=== PATIENT | female | born 1955 | race Caucasian/White ===

== ENCOUNTER 2017-05-04 07:11 | Inpatient (IN) | payer BC ==
[~2017-05-04] VITALS: Ht 151.1 cm; Wt 76.7 kg
[~2017-05-04 07:11] MED LIST: ALLEGRA PO; ASPIRIN81 MG PO; AZITHROMYCIN250 MG PO; KEFLEX500 MG; MULTI-VITAMIN1 EACH PO; PANTOPRAZOLE SO40 MG PO; PREVACID15 MG PO; ROLAIDS PO; VICODIN 5-5001 EACH PO; WELLBUTRIN SR150 MG PO; ZYRTEC10 MG PO
--- OUTSIDE RECORDS SUMMARY | 2017-05-04 07:15 | XMS REPORT ---
Author Author [facility] Address Unknown Phone Unavailable Care Team Providers Care Housing Relocation Name Role Phone NATHALIA RICCI Unavailable Unavailable Problems This patient has no known problems. Allergies, Adverse Reactions, Alerts This patient has no known allergies or adverse reactions. Medications This patient has no known medications. Results Test Description Test Time Test Comments Text Results Atomic Results Result Comments CHEST SINGLE (PORTABLE) [place] [address] Patient Name: ANA LAURA EDDY MR #: [id number] : 1955 Age/Sex: 61/F Req #: [id number] [facility] Physician: Ordered by: NATHALIA RICCI MD Report #: [id number] Location: ER Room/Bed: Procedure: [id number] DX/CHEST SINGLE (PORTABLE) Exam Date: 02/23/17 Exam Time: 1025 REPORT STATUS: Signed PROCEDURE: A single AP view of the chest. COMPARISON: Portable chest 08/03/2016. INDICATIONS: CHEST PRESSURE, PNEUMONIA FINDINGS: Lines/tubes: None. Lungs: The lungs are well inflated and clear. There is no evidence of pneumonia or pulmonary edema. Pleura: There is no pleural effusion or pneumothorax. Heart and mediastinum: The heart and the mediastinum are unremarkable. Bones: No acute bony abnormality. Degenerative changes of the thoracic spine. IMPRESSION: No acute radiographic abnormality. Dictated by: Florecita eBck M.D. on 02/23/2017 at 11:19 Electronically approved by: Florecita Beck M.D. on 02/23/2017 at 11:19 Dictated By: FLORECITA BECK MD 111 Transcribed By: DUKE on 02/23/171118 COPY TO: NATHALIA RICCI MD
[2017-05-04] MEDS ORDERED: ONDANSETRON HCL INJ 2 MG/ML VIAL IV STA ×2 (07:17→07:49)
[2017-05-04] MEDS ORDERED: ASPIRIN EC81 MG PO (07:38)
[2017-05-04] MEDS ORDERED: TRAZODONE HCL50 MG PO (07:38)
[2017-05-04] MEDS ORDERED: ALBUTEROL0.63 MG/3 INH (07:38)
[2017-05-04] MEDS ORDERED: BIOTIN1 MG PO (07:38)
[2017-05-04] MEDS ORDERED: ATORVASTATIN CA20 MG PO (07:38)
[2017-05-04] MEDS ORDERED: SYMBICORT 16010.2 GM (07:38)
--- NOTE | 2017-05-04 07:38 | Diagnostic Imaging Report ---
PROCEDURE: A single AP view of the chest. COMPARISON: None. INDICATIONS: COUGH, SOB, CHILLS FINDINGS: Lines/tubes: None. Lungs: Right perihilar and right lung base airspace opacification. The left lung is clear. Pleura: There is no pleural effusion or pneumothorax. Heart and mediastinum: The heart and the mediastinum are unremarkable. Bones: No acute bony abnormality. Degenerative changes of the thoracic spine. IMPRESSION: Airspace opacification in the right lung may represent a developing pneumonia. Dictated by: Grant Lomas M.D. on 05/04/2017 at 7:48 Electronically approved by: Grant Lomas M.D. on 05/04/2017 at 7:48
[2017-05-04 07:49] LABS: BASOPHILS # (AUTO) 0.1 (0.0-0.1); BASOPHILS % 0.3 % (0.0-1.0); EOSINOPHILS # (AUTO) 0.1 (0.0-0.4); EOSINOPHILS % 0.5 % (0.0-6.0); HEMATOCRIT 41.7 % (34.2-44.1); LYMPHOCYTES # (AUTO) 2.7 (1.0-3.2); LYMPHOCYTES % 16.1 % (18.0-39.1); MEAN CORPUSCULAR HEMOGLOBIN 27.4 pg (28-32); MEAN CORPUSCULAR HGB CONC 31.2 g/dL (31-35); MONOCYTES # (AUTO) 0.6 (0.2-0.8); MONOCYTES % 3.6 % (4.4-11.3); NEUTROPHILS # (AUTO) 13.4 (2.1-6.9); NEUTROPHILS % 79.2 % (38.7-80.0); PLATELET COUNT 320 x10e3/uL (140-360); RED BLOOD COUNT 4.74 x10e6/uL (3.6-5.1); RED CELL DISTRIBUTION WIDTH 14.9 % (11.7-14.4)
[2017-05-04 08:00] VITALS: BP 105/62
[2017-05-04] MEDS ORDERED: MORPHINE SULFATE 5 MG/ML VIAL IV ONE (08:00)
[2017-05-04] MEDS ORDERED: MORPHINE SULFATE 2 MG/ML SYR IV NR (08:00)
[2017-05-04] MEDS ORDERED: SODIUM CHLORIDE 0.9% 1000ML 1,000 ML IV SCH (08:00)
[2017-05-04] MEDS: SODIUM CHLORIDE 0.9% 1000ML 1,000 ML IV SCH ×2 (08:02→17:10)
[2017-05-04] MEDS: CEFTRIAXONE SOD 1 GM VIAL IV SCH (08:04)
[2017-05-04 08:06] LABS: ALANINE AMINOTRANSFERASE 17 IU/L (0-55); ALBUMIN 3.5 g/dL (3.5-5.0); ALKALINE PHOSPHATASE 78 IU/L (40-150); ANION GAP 14.7 mmol/L (8-16); BLOOD UREA NITROGEN 12 mg/dL (7-26); BUN/CREATININE RATIO 14 (6-25); CALCIUM 9.2 mg/dL (8.4-10.2); CARBON DIOXIDE 26 mmol/L (22-29); CHLORIDE 108 mmol/L (98-107); CREATINE KINASE 93 IU/L (29-168); CREATININE, SERUM 0.85 mg/dL (0.57-1.11); EST GLOMERULAR FILTRATION RATE > 60 ML/MIN (60-); GLUCOSE 103 mg/dL (74-118); POTASSIUM 3.7 mmol/L (3.5-5.1); SODIUM 145 mmol/L (136-145)
[2017-05-04] MEDS ORDERED: AZITHROMYCIN 500MG/SOD CHL 0.9% 250ML BAG IV SCH (08:15)
[2017-05-04] MEDS ORDERED: MORPHINE SULFATE 4 MG/ML SYR IV PRN (08:15)
[2017-05-04] MEDS ORDERED: ONDANSETRON HCL INJ 2 MG/ML VIAL IV PRN (08:15)
[2017-05-04] MEDS ORDERED: MORPHINE SULFATE 2 MG/ML SYR IV PRN (08:30)
[2017-05-04] MEDS: AZITHROMYCIN 500MG/NS 250 ML 250 ML IV SCH (08:57)
[2017-05-04] MEDS: IPRATROPIUM BROMIDE 0.02% 2.5 ML NEB NEB SCH ×3 (09:00→19:45)
[2017-05-04 09:12] VITALS: BP 105/68
[2017-05-04 12:17] VITALS: BP 99/46
[2017-05-04] MEDS: ALBUTEROL SULF 0.083% NEB SOLN 3 ML NEB NEB SCH ×3 (13:00→19:45)
--- OUTSIDE RECORDS SUMMARY | 2017-05-04 13:04 | XMS REPORT | Continuity of Care Document ---
Author Author [facility] Organization [facility] Address [address] [place] [address] Phone Unavailable Care Team Providers Care Tag Press Operator Name Role Phone CINDY BRICENO DO PCP Insurance Providers Guarantor Ana Laura Lopez Address [address] [place] [address] Payer [facility] Policy Number [id number] Subscriber's Name Ana Laura Lopez Relationship 18 Self / Same As Patient Group Number [id number] Group Name [employer]. Effective Date 14 Advance Directives Directive Response Recorded Date/Time Does the patient have an advance directive? No 12/28/14 5:57pm If yes, is advance directive on file with [facility]? No 04/03/12 2:24pm If not on file with [facility] will patient provide a copy? Yes 08/02/16 3:02pm Do you have a Directive to Physician? No 05/04/17 7:59am Do you have a Medical Power of Correspondence Review Clerk? No 05/04/17 7:59am Do you have an out of hospital Do Not Resuscitate Order? No 05/04/17 7:59am Do you have any special needs we should be aware of? No 05/04/17 7:59am Do you have a support person here with you today? Yes 05/04/17 7:59am Did patient receive Notice of Privacy Practices? Yes 05/04/17 7:59am Did patient receive patient rights and responsibilities? Yes 05/04/17 7:59am Problems Medical Problem Onset Date Status Hypoxia Unknown Pneumonia 12/28/2014 Acute UTI (urinary tract infection) 12/28/2014 Acute Medications Current Home Medications Medication Dose Units Route Directions Days Qty Instructions Start Date Albuterol Sulfate 0.63 Mg/3 Ml Vial.neb 3 Ml Inhalation Aspirin (Aspirin Ec) 81 Mg Tablet.dr 81 Mg Oral Daily 30 Tab Atorvastatin Calcium 20 Mg Tablet 40 Mg Oral Bedtime 30 Tab Biotin 1 Mg Tablet 1 Mg Oral Budesonide/Formoterol Fumarate (Symbicort 160-4.5 Mcg Inhaler) 10.2 Gm Hfa.aer.ad Bupropion Hcl (Wellbutrin Sr) 150 Mg Tablet.er 150 Mg Oral Daily Pantoprazole Sodium (Protonix) 40 Mg Tablet. 40 Mg Oral Daily Trazodone Hcl 50 Mg Tablet 50 Mg Oral Daily 30 Tab Past Home Medications Medication Directions Ordered Status Lin , Oral Daily Discontinued Aspirin 81 Mg Tab.chew, 81 Mg Oral Daily Discontinued Azithromycin (Z-Juice) 250 Mg Tablet, 250 Mg Oral Use As Directed Discontinued Cephalexin Monohydrate (Keflex) 500 Mg Capsule, Discontinued Cetirizine Hcl (Zyrtec) 10 Mg Tablet, 1 Tab Oral Daily Discontinued Hydrocodone Bit/Acetaminophen* (Vicodin 5-500 Tablet*) 1 Each Tablet, Oral As Needed as needed Discontinued Lansoprazole (Prevacid*) 15 Mg Capcr, 15 Mg Oral Daily Discontinued Multivitamin (Multi-Vitamin Daily) 1 Each Tablet, Oral Daily Discontinued Rolaids , 2 Tab.chew Oral As Needed Discontinued Social History Social History Problem Response Recorded Date/Time Onset Date Status Hx Psychiatric Problems No 08/03/2016 3:19am Not Applicable Not Applicable Hx Eating Disorder No 08/03/2016 3:19am Not Applicable Not Applicable Hx Substance Use Disorder No 08/03/2016 3:19am Not Applicable Not Applicable Hx Depression No 08/03/2016 3:19am Not Applicable Not Applicable Hx Alcohol Use No 08/03/2016 3:19am Not Applicable Not Applicable Hx Substance Use Treatment No 08/03/2016 3:19am Not Applicable Not Applicable Hx Physical Abuse No 08/03/2016 3:19am Not Applicable Not Applicable Smoking Status Start Date Stop Date Never Smoker Hospital Discharge Instructions No hospital discharge instruction information available. Plan of Care Discharge Date 05/04/17 1:00pm Disposition ADMITTED Prescriptions See Medication Section Functional Status No functional status information available. Allergies, Adverse Reactions, Alerts Allergen Type Severity Reaction Status Last Updated TAPE Allergy Mild skin irritation Active 08/02/16 Immunizations No immunization information available. Vital Signs Acute Vital Signs Vital Response Date/Time Temperature (Fahrenheit) 99.2 degrees F (97.6 - 99.5) 05/04/2017 12:17pm Pulse Pulse Rate (adult) 92 bpm (60 - 90) 05/04/2017 12:17pm Respiratory Rate 20 bpm (12 - 24) 05/04/2017 12:17pm Blood Pressure 99/46 mm Hg 05/04/2017 12:17pm Height 4 ft 11.5 in 05/04/2017 7:11am Weight 167 lb 05/04/2017 7:11am Body Mass Index 33.2 kg/m^2 05/04/2017 7:11am Results Laboratory Results Test Name Result Units Flags Reference Collection Date/Time Result Date/ Time Comments Urine Mucus FEW H RARE 08/02/2016 2:09pm 08/02/2016 4:44pm Lactic Acid Level 9.4 MG/DL 4.5-19.8 08/02/2016 1:20pm 08/02/2016 2: 07pm Magnesium Level 1.8 MG/DL 1.3-2.1 08/02/2016 1:20pm 08/02/2016 2:09pm B-Type Natriuretic Peptide 85.3 pg/mL 0-100 08/02/2016 1:20pm 2016 2:27pm Lipase 5 U/L L 8-78 08/02/2016 1:20pm 08/02/2016 2:09pm Arterial Blood pH 7.43 H 7.31-7.41 08/02/2016 2:01pm 08/02/2016 2: 12pm Arterial Blood Partial Pressure CO2 37 mmHg L 41-51 08/02/2016 2:01pm 2:12pm Arterial Blood Partial Pressure O2 60 mmHg L 80-105 08/02/2016 2:01pm 2:12pm Arterial Blood HCO3 24 mmol/L 23-28 08/02/2016 2:01pm 08/02/2016 2: 12pm Arterial Blood Base Excess 0.0 mmol/L -2 - 3 08/02/2016 2:01pm 2016 2:12pm Arterial Blood Oxygen Saturation 92.0 % L 95-98 08/02/2016 2:01pm 2016 2:12pm Group A Streptococcus Screen NEGATIVE NEGATIVE 08/02/2016 3:49pm 11/2016 5:25pm Prothrombin Time 11.8 seconds L 11.9-14.5 02/23/2017 9:45am 02/23/2017 10:39am Prothromb Time International Ratio 0.83 02/23/2017 9:45am 2016 10:39am Oral Anticoagulant Therapy INR Values: 1. Low Intensity Therapy 1.5 - 2.0 2. Moderate Intensity Therapy 2.0 - 3.0 3. High Intensity Therapy(1) 2.5 - 3.5 4. High Intensity Therapy(2) 3.0 - 4.0 5. Panic Value INR > 5.0 Activated Partial Thromboplast Time 26.4 seconds 23.8-35.5 02/23/2017 9: 45am 02/23/2017 10:39am Urine Color YELLOW YELLOW 02/23/2017 10:00am 02/23/2017 10:41am Urine Clarity SL CLOUDY CLEAR 02/23/2017 10:00am 02/23/2017 10:41am Urine Specific [place] 1.015 1.010-1.025 02/23/2017 10:00am 2016 10:41am Urine pH 6.5 5 - 7 02/23/2017 10:00am 02/23/2017 10:41am Urine Leukocyte Esterase NEGATIVE NEGATIVE 02/23/2017 10:00am 2016 10:41am Urine Nitrite NEGATIVE NEGATIVE 02/23/2017 10:00am 02/23/2017 10: 41am Urine Protein NEGATIVE NEGATIVE 02/23/2017 10:00am 02/23/2017 10: 41am Urine Glucose (UA) NEGATIVE NEGATIVE 02/23/2017 10:00am 02/23/2017 10 :41am Urine Ketones NEGATIVE NEGATIVE 02/23/2017 10:00am 02/23/2017 10: 41am Urine Urobilinogen 0.2 mg/dL 0.2 - 1 02/23/2017 10:00am 02/23/2017 10: 41am Urine Bilirubin NEGATIVE NEGATIVE 02/23/2017 10:00am 02/23/2017 10: 41am Urine Blood NEGATIVE NEGATIVE 02/23/2017 10:00am 02/23/2017 10:41am Urine WBC NONE /HPF 0-5 02/23/2017 10:00am 02/23/2017 10:42am Urine RBC NONE /HPF 0-5 02/23/2017 10:00am 02/23/2017 10:42am Urine Bacteria NONE /HPF NONE 02/23/2017 10:00am 02/23/2017 10:42am Urine Epithelial Cells FEW /LPF NONE 02/23/2017 10:00am 02/23/2017 10: 42am White Blood Count 16.86 x10e3/uL H 4.8-10.8 05/04/2017 7:252017 7:52am Red Blood Count 4.74 x10e6/uL 3.6-5.1 05/04/2017 7:05/04/2017 7: 52am Hemoglobin 13.0 g/dL 12.0-16.0 05/04/2017 7:05/04/2017 7:52am Hematocrit 41.7 % 34.2-44.1 05/04/2017 7:05/04/2017 7:52am Mean Corpuscular Volume 88.0 fL 81-99 05/04/2017 7:05/04/2017 7: 52am Mean Corpuscular Hemoglobin 27.4 pg L 28-32 05/04/2017 7:2017 7:52am Mean Corpuscular Hemoglobin Concent 31.2 g/dL 31-35 05/04/2017 7:05/04/2017 7:52am Red Cell Distribution Width 14.9 % H 11.7-14.4 05/04/2017 7:2017 7:52am Platelet Count 320 x10e3/uL 140-360 05/04/2017 7:05/04/2017 7: 52am Neutrophils (%) (Auto) 79.2 % 38.7-80.0 05/04/2017 7:05/04/2017 7: 52am Lymphocytes (%) (Auto) 16.1 % L 18.0-39.1 05/04/2017 7:05/04/2017 7 :52am Monocytes (%) (Auto) 3.6 % L 4.4-11.3 05/04/2017 7:05/04/2017 7: 52am Eosinophils (%) (Auto) 0.5 % 0.0-6.0 05/04/2017 7:05/04/2017 7: 52am Basophils (%) (Auto) 0.3 % 0.0-1.0 05/04/2017 7:05/04/2017 7:52am IM GRANULOCYTES % 0.3 % 0.0-1.0 05/04/2017 7:05/04/2017 7:52am Neutrophils # (Auto) 13.4 H 2.1-6.9 05/04/2017 7:05/04/2017 7: 52am Lymphocytes # (Auto) 2.7 1.0-3.2 05/04/2017 7:05/04/2017 7:52am Monocytes # (Auto) 0.6 0.2-0.8 05/04/2017 7:05/04/2017 7:52am Eosinophils # (Auto) 0.1 0.0-0.4 05/04/2017 7:05/04/2017 7:52am Basophils # (Auto) 0.1 0.0-0.1 05/04/2017 7:05/04/2017 7:52am Absolute Immature Granulocyte (auto 0.05 x10e3/uL 0-0.1 05/04/2017 7: 05/04/2017 7:52am Sodium Level 145 mmol/L 136-145 05/04/2017 7:05/04/2017 8:08am Potassium Level 3.7 mmol/L 3.5-5.1 05/04/2017 7:05/04/2017 8:08am Chloride Level 108 mmol/L H 98-107 05/04/2017 7:05/04/2017 8:08am Influenza Virus Types A,B Antigen NEGATIVE NEGATIVE 05/04/2017 7:2005/04/2017 8:08am Carbon Dioxide Level 26 mmol/L 22-29 05/04/2017 7:05/04/2017 8: 08am Anion Gap 14.7 mmol/L 8-16 05/04/2017 7:05/04/2017 8:08am Blood Urea Nitrogen 12 mg/dL 7-05/04/2017 7:05/04/2017 8:08am Creatinine 0.85 mg/dL 0.57-1.11 05/04/2017 7:05/04/2017 8:08am BUN/Creatinine Ratio 14 6-05/04/2017 7:05/04/2017 8:08am Estimat Glomerular Filtration Rate > 60 ML/MIN 60- 05/04/2017 7: 8:08am Ranges were taken from the National Kidney Disease Education Program and the National Kidney Foundation literature. Reference ranges: 60 or greater: Normal 16-59 (for 3 consecutive months): Chronic kidney disease 15 or less: Kidney failure Glucose Level 103 mg/dL 74-118 05/04/2017 7:05/04/2017 8:08am Calcium Level 9.2 mg/dL 8.4-10.2 05/04/2017 7:05/04/2017 8:08am Total Bilirubin 0.5 mg/dL 0.2-1.2 05/04/2017 7:05/04/2017 8:08am Aspartate Amino Transf (AST/SGOT) 17 IU/L 5-34 05/04/2017 7:2017 8:08am Alanine Aminotransferase (ALT/SGPT) 17 IU/L 0-55 05/04/2017 7:10/2017 8:08am Total Protein 7.1 g/dL 6.5-8.1 05/04/2017 7:05/04/2017 8:08am Albumin 3.5 g/dL 3.5-5.0 05/04/2017 7:05/04/2017 8:08am Globulin 3.6 g/dL H 2.3-3.5 05/04/2017 7:05/04/2017 8:08am Albumin/Globulin Ratio 1.0 0.8-2.0 05/04/2017 7:05/04/2017 8: 08am Alkaline Phosphatase 78 IU/L 40-150 05/04/2017 7:25am 05/04/2017 8: 08am Creatine Kinase 93 IU/L 29-168 05/04/2017 7:25am 05/04/2017 8:08am Creatine Kinase MB 2.90 ng/mL 0.00-5.00 05/04/2017 7:25am 05/04/2017 8: 25am Troponin I 0.003 ng/mL 0-0.300 05/04/2017 7:25am 05/04/2017 8:25am Microbiology Results Procedure Source Organism/Result Collection Date/Time Result Date/Time Result Status Blood Culture Blood NO GROWTH AFTER 5 DAYS, FINAL REPORT 08/02/2016 1:20pm 08/07/2016 2:21pm Final Procedures Procedure Status Date Provider(s) X-ray of chest, two views Active 08/02/16 KARELY ROWELL NP Computed tomography of brain without then with contrast Active 08/04/16 CAYETANO TREVINO MD X-ray of chest, single view Active 05/04/17 YESSI CHOE MD Encounters Encounter Location Arrival/Admit Date Discharge/Depart Date Attending Provider Departed [facility] 05/04/17 7:11am 1:00pm YESSI CHOE MD Departed [facility] 02/23/17 9:34am 1:13pm NATHALIA RICCI MD Discharged [facility]patient [facility] 08/02/16 7:43pm 08/05/16 12:14pm CAYETANO TREVINO MD
[2017-05-04 13:45] VITALS: BP 120/55
[2017-05-04 16:27] VITALS: BP 91/54
[2017-05-04] MEDS: ACETAMINOPHEN 325 MG TAB PO PRN (17:28)
[2017-05-04] MEDS: ENOXAPARIN SOD INJ 40 MG/0.4 ML SYR SC SCH (17:29)
[2017-05-04] MEDS ORDERED: ALBUTEROL SULF 0.083% NEB SOLN 3 ML NEB INH PRN (17:45)
[2017-05-04] MEDS: BUDESONIDE/FORMOTEROL 160/4.5MCG INHALER INH SCH (19:00)
[2017-05-04 20:00] VITALS: BP 97/58
[2017-05-04] MEDS: ATORVASTATIN 40 MG TAB PO SCH (20:52)
[2017-05-05] VITALS (8 sets, daily range): BP systolic 82–106; BP diastolic 51–69
[2017-05-05] MEDS: ALBUTEROL SULF 0.083% NEB SOLN 3 ML NEB NEB SCH ×4 (01:35→18:30)
[2017-05-05] MEDS: IPRATROPIUM BROMIDE 0.02% 2.5 ML NEB NEB SCH ×4 (01:35→18:30)
[2017-05-05] MEDS: SODIUM CHLORIDE 0.9% 1000ML 1,000 ML IV SCH ×4 (01:40→23:00)
[2017-05-05] MEDS: ASPIRIN 81 MG ENTERIC COATED PO SCH (08:02)
[2017-05-05] MEDS: BUPROPION HCL SR 150 MG TAB PO SCH (08:02)
[2017-05-05] MEDS: TRAZODONE HCL 50 MG TAB PO SCH (08:02)
[2017-05-05] MEDS: PANTOPRAZOLE SOD 40 MG TABEC PO SCH (08:02)
[2017-05-05] MEDS: CEFTRIAXONE SOD 1 GM VIAL IV SCH (08:02)
[2017-05-05] MEDS: ACETAMINOPHEN 325 MG TAB PO PRN (08:03)
[2017-05-05] MEDS: AZITHROMYCIN 500MG/NS 250 ML 250 ML IV SCH (08:11)
[2017-05-05] MEDS: ENOXAPARIN SOD INJ 40 MG/0.4 ML SYR SC SCH (16:04)
[2017-05-05] MEDS: BUDESONIDE/FORMOTEROL 160/4.5MCG INHALER INH SCH (18:30)
[2017-05-05] MEDS: ATORVASTATIN 40 MG TAB PO SCH (20:29)
[2017-05-06] VITALS (7 sets, daily range): BP systolic 92–117; BP diastolic 56–81
[2017-05-06] MEDS: IPRATROPIUM BROMIDE 0.02% 2.5 ML NEB NEB SCH ×4 (00:35→19:00)
[2017-05-06] MEDS: ALBUTEROL SULF 0.083% NEB SOLN 3 ML NEB NEB SCH ×4 (00:35→19:00)
[2017-05-06] MEDS: SODIUM CHLORIDE 0.9% 1000ML 1,000 ML IV SCH ×3 (06:15→22:50)
[2017-05-06] MEDS: BUDESONIDE/FORMOTEROL 160/4.5MCG INHALER INH SCH ×2 (07:00→19:00)
--- NOTE | 2017-05-06 07:25 | Diagnostic Imaging Report ---
EXAMINATION: PA and lateral views of the chest. COMPARISON: August 02, 2016 CLINICAL HISTORY: Pneumonia, hypoxia DISCUSSION: Lines/tubes: None. Lungs: Right lower lobe medial opacity better seen on the lateral radiograph. Central pulmonary venous congestion. Pleura: There is no pleural effusion or pneumothorax. Heart and mediastinum: The cardiomediastinal silhouette is normal. Bones and soft tissues: No acute bony abnormalities. IMPRESSION: Right medial lower lobe consolidation may reflect pneumonia. Signed by: Dr. Benedict Suazo M.D. on 05/06/2017 7:22 AM
[2017-05-06 07:54] LABS: BASOPHILS % 0.3 % (0.0-1.0); EOSINOPHILS # (AUTO) 0.1 (0.0-0.4); EOSINOPHILS % 1.7 % (0.0-6.0); HEMATOCRIT 32.1 % (34.2-44.1); HEMOGLOBIN 9.8 g/dL (12.0-16.0); LYMPHOCYTES # (AUTO) 2.3 (1.0-3.2); LYMPHOCYTES % 34.8 % (18.0-39.1); MEAN CORPUSCULAR HEMOGLOBIN 27.5 pg (28-32); MEAN CORPUSCULAR HGB CONC 30.5 g/dL (31-35); MEAN CORPUSCULAR VOLUME 89.9 fL (81-99); MONOCYTES # (AUTO) 0.5 (0.2-0.8); MONOCYTES % 7.2 % (4.4-11.3); NEUTROPHILS # (AUTO) 3.7 (2.1-6.9); NEUTROPHILS % 55.5 % (38.7-80.0); PLATELET COUNT 222 x10e3/uL (140-360); RED BLOOD COUNT 3.57 x10e6/uL (3.6-5.1); RED CELL DISTRIBUTION WIDTH 15.7 % (11.7-14.4)
[2017-05-06 08:14] LABS: ANION GAP 9.2 mmol/L (8-16); BLOOD UREA NITROGEN 6 mg/dL (7-26); BUN/CREATININE RATIO 8 (6-25); CALCIUM 8.1 mg/dL (8.4-10.2); CARBON DIOXIDE 25 mmol/L (22-29); CHLORIDE 114 mmol/L (98-107); CREATININE, SERUM 0.77 mg/dL (0.57-1.11); EST GLOMERULAR FILTRATION RATE > 60 ML/MIN (60-); GLUCOSE 92 mg/dL (74-118); POTASSIUM 3.2 mmol/L (3.5-5.1); SODIUM 145 mmol/L (136-145)
[2017-05-06] MEDS: CEFTRIAXONE SOD 1 GM VIAL IV SCH (08:34)
[2017-05-06] MEDS: AZITHROMYCIN 500MG/NS 250 ML 250 ML IV SCH (08:34)
[2017-05-06] MEDS: ASPIRIN 81 MG ENTERIC COATED PO SCH (08:34)
[2017-05-06] MEDS: BUPROPION HCL SR 150 MG TAB PO SCH (08:34)
[2017-05-06] MEDS: PANTOPRAZOLE SOD 40 MG TABEC PO SCH (08:34)
[2017-05-06] MEDS: TRAZODONE HCL 50 MG TAB PO SCH (08:34)
[2017-05-06] MEDS ORDERED: POTASSIUM CHLORIDE 10 MEQ TABCR PO ONE (13:30)
[2017-05-06] MEDS: ENOXAPARIN SOD INJ 40 MG/0.4 ML SYR SC SCH (16:06)
[2017-05-06] MEDS: ATORVASTATIN 40 MG TAB PO SCH (20:12)
[2017-05-06] MEDS: ACETAMINOPHEN 325 MG TAB PO PRN (20:12)
[2017-05-07] VITALS (9 sets, daily range): BP systolic 94–121; BP diastolic 61–76
[2017-05-07] MEDS: BUDESONIDE/FORMOTEROL 160/4.5MCG INHALER INH SCH ×2 (06:55→19:45)
[2017-05-07] MEDS: IPRATROPIUM BROMIDE 0.02% 2.5 ML NEB NEB SCH ×3 (06:58→19:45)
[2017-05-07] MEDS: ALBUTEROL SULF 0.083% NEB SOLN 3 ML NEB NEB SCH ×3 (06:58→19:45)
[2017-05-07] MEDS: PANTOPRAZOLE SOD 40 MG TABEC PO SCH (08:13)
[2017-05-07] MEDS: BUPROPION HCL SR 150 MG TAB PO SCH (08:13)
[2017-05-07] MEDS: CEFTRIAXONE SOD 1 GM VIAL IV SCH (08:13)
[2017-05-07] MEDS: TRAZODONE HCL 50 MG TAB PO SCH (08:13)
[2017-05-07] MEDS: ASPIRIN 81 MG ENTERIC COATED PO SCH (08:13)
[2017-05-07] MEDS: AZITHROMYCIN 500MG/NS 250 ML 250 ML IV SCH (08:13)
[2017-05-07] MEDS: ACETAMINOPHEN 325 MG TAB PO PRN ×2 (09:01→19:28)
[2017-05-07 11:36] LABS: BASOPHILS % 0.4 % (0.0-1.0); EOSINOPHILS # (AUTO) 0.1 (0.0-0.4); EOSINOPHILS % 1.3 % (0.0-6.0); HEMATOCRIT 32.8 % (34.2-44.1); HEMOGLOBIN 10.3 g/dL (12.0-16.0); LYMPHOCYTES # (AUTO) 2.3 (1.0-3.2); LYMPHOCYTES % 20.7 % (18.0-39.1); MEAN CORPUSCULAR HEMOGLOBIN 27.5 pg (28-32); MEAN CORPUSCULAR HGB CONC 31.4 g/dL (31-35); MEAN CORPUSCULAR VOLUME 87.5 fL (81-99); MONOCYTES # (AUTO) 0.6 (0.2-0.8); MONOCYTES % 5.2 % (4.4-11.3); NEUTROPHILS % 72.1 % (38.7-80.0); PLATELET COUNT 234 x10e3/uL (140-360); RED BLOOD COUNT 3.75 x10e6/uL (3.6-5.1); RED CELL DISTRIBUTION WIDTH 15.4 % (11.7-14.4)
[2017-05-07 12:00] LABS: ANION GAP 8.6 mmol/L (8-16); BLOOD UREA NITROGEN 5 mg/dL (7-26); BUN/CREATININE RATIO 8 (6-25); CALCIUM 8.5 mg/dL (8.4-10.2); CARBON DIOXIDE 24 mmol/L (22-29); CHLORIDE 112 mmol/L (98-107); CREATININE, SERUM 0.65 mg/dL (0.57-1.11); EST GLOMERULAR FILTRATION RATE > 60 ML/MIN (60-); GLUCOSE 97 mg/dL (74-118); POTASSIUM 3.6 mmol/L (3.5-5.1); SODIUM 141 mmol/L (136-145)
[2017-05-07] MEDS: ENOXAPARIN SOD INJ 40 MG/0.4 ML SYR SC SCH (16:19)
[2017-05-07] MEDS: ATORVASTATIN 40 MG TAB PO SCH (20:25)
[2017-05-08] VITALS (7 sets, daily range): BP systolic 97–137; BP diastolic 55–71
[2017-05-08] MEDS: IPRATROPIUM BROMIDE 0.02% 2.5 ML NEB NEB SCH ×4 (00:45→19:30)
[2017-05-08] MEDS: ALBUTEROL SULF 0.083% NEB SOLN 3 ML NEB NEB SCH ×4 (00:45→19:30)
[2017-05-08] MEDS: ACETAMINOPHEN 325 MG TAB PO PRN ×2 (06:37→22:13)
[2017-05-08] MEDS: BUDESONIDE/FORMOTEROL 160/4.5MCG INHALER INH SCH ×2 (07:00→19:30)
[2017-05-08 07:08] LABS: BASOPHILS % 0.3 % (0.0-1.0); EOSINOPHILS # (AUTO) 0.2 (0.0-0.4); EOSINOPHILS % 3.5 % (0.0-6.0); HEMATOCRIT 34.1 % (34.2-44.1); HEMOGLOBIN 10.5 g/dL (12.0-16.0); LYMPHOCYTES # (AUTO) 2.3 (1.0-3.2); LYMPHOCYTES % 39.3 % (18.0-39.1); MEAN CORPUSCULAR HEMOGLOBIN 26.8 pg (28-32); MEAN CORPUSCULAR HGB CONC 30.8 g/dL (31-35); MONOCYTES # (AUTO) 0.4 (0.2-0.8); MONOCYTES % 7.7 % (4.4-11.3); NEUTROPHILS # (AUTO) 2.8 (2.1-6.9); PLATELET COUNT 239 x10e3/uL (140-360); RED BLOOD COUNT 3.92 x10e6/uL (3.6-5.1); RED CELL DISTRIBUTION WIDTH 15.6 % (11.7-14.4)
[2017-05-08 07:33] LABS: ANION GAP 9.9 mmol/L (8-16); BLOOD UREA NITROGEN 6 mg/dL (7-26); BUN/CREATININE RATIO 8 (6-25); CALCIUM 8.9 mg/dL (8.4-10.2); CARBON DIOXIDE 27 mmol/L (22-29); CHLORIDE 109 mmol/L (98-107); CREATININE, SERUM 0.72 mg/dL (0.57-1.11); EST GLOMERULAR FILTRATION RATE > 60 ML/MIN (60-); GLUCOSE 96 mg/dL (74-118); POTASSIUM 3.9 mmol/L (3.5-5.1); SODIUM 142 mmol/L (136-145)
[2017-05-08] MEDS: CEFTRIAXONE SOD 1 GM VIAL IV SCH (09:55)
[2017-05-08] MEDS: AZITHROMYCIN 500MG/NS 250 ML 250 ML IV SCH (10:33)
[2017-05-08] MEDS: TRAZODONE HCL 50 MG TAB PO SCH (10:33)
[2017-05-08] MEDS: PANTOPRAZOLE SOD 40 MG TABEC PO SCH (10:33)
[2017-05-08] MEDS: ASPIRIN 81 MG ENTERIC COATED PO SCH (10:33)
[2017-05-08] MEDS: BUPROPION HCL SR 150 MG TAB PO SCH (10:33)
[2017-05-08] MEDS: ENOXAPARIN SOD INJ 40 MG/0.4 ML SYR SC SCH (16:04)
[2017-05-08] MEDS: ATORVASTATIN 40 MG TAB PO SCH (21:06)
[2017-05-09] VITALS (7 sets, daily range): BP systolic 90–119; BP diastolic 55–83
[2017-05-09] MEDS: ALBUTEROL SULF 0.083% NEB SOLN 3 ML NEB NEB SCH ×4 (00:30→19:30)
[2017-05-09] MEDS: IPRATROPIUM BROMIDE 0.02% 2.5 ML NEB NEB SCH ×4 (00:30→19:30)
[2017-05-09] MEDS: BUDESONIDE/FORMOTEROL 160/4.5MCG INHALER INH SCH ×2 (07:40→19:30)
[2017-05-09] MEDS: CEFTRIAXONE SOD 1 GM VIAL IV SCH (07:44)
--- NOTE | 2017-05-09 08:14 | Diagnostic Imaging Report ---
PROCEDURE: Frontal and lateral views of the chest. COMPARISON: Chest 2 views 05/06/2017. INDICATIONS: PNEUMONIA FINDINGS: Lines/tubes: None. Lungs: Airspace opacity is present in the left lower lobe. The right lung is clear. Pleura: There is no pleural effusion or pneumothorax. Heart and mediastinum: The heart and the mediastinum are normal. Bones: No acute bony abnormality. Degenerative changes of the thoracic spine. Soft tissues: Gastric lap band. IMPRESSION: Left lower lobe pneumonia. Dictated by: Grant Lomas M.D. on 05/09/2017 at 8:24 Electronically approved by: Grant Lomas M.D. on 05/09/2017 at 8:24
[2017-05-09] MEDS: TRAZODONE HCL 50 MG TAB PO SCH (08:43)
[2017-05-09] MEDS: BUPROPION HCL SR 150 MG TAB PO SCH (08:43)
[2017-05-09] MEDS: AZITHROMYCIN 500MG/NS 250 ML 250 ML IV SCH (08:43)
[2017-05-09] MEDS: PANTOPRAZOLE SOD 40 MG TABEC PO SCH (08:43)
[2017-05-09] MEDS: ASPIRIN 81 MG ENTERIC COATED PO SCH (08:43)
[2017-05-09] MEDS: ENOXAPARIN SOD INJ 40 MG/0.4 ML SYR SC SCH (17:14)
[2017-05-09] MEDS: ATORVASTATIN 40 MG TAB PO SCH (20:40)
[2017-05-09] MEDS: ACETAMINOPHEN 325 MG TAB PO PRN (20:40)
[2017-05-10] VITALS (8 sets, daily range): BP systolic 86–100; BP diastolic 52–71
[2017-05-10] MEDS: IPRATROPIUM BROMIDE 0.02% 2.5 ML NEB NEB SCH ×4 (08:07→20:20)
[2017-05-10] MEDS: ALBUTEROL SULF 0.083% NEB SOLN 3 ML NEB NEB SCH ×4 (08:07→20:20)
[2017-05-10] MEDS: BUDESONIDE/FORMOTEROL 160/4.5MCG INHALER INH SCH ×2 (08:07→20:20)
[2017-05-10] MEDS: TRAZODONE HCL 50 MG TAB PO SCH (09:17)
[2017-05-10] MEDS: PANTOPRAZOLE SOD 40 MG TABEC PO SCH (09:17)
[2017-05-10] MEDS: BUPROPION HCL SR 150 MG TAB PO SCH (09:17)
[2017-05-10] MEDS: CEFTRIAXONE SOD 1 GM VIAL IV SCH (09:17)
[2017-05-10] MEDS: ASPIRIN 81 MG ENTERIC COATED PO SCH (09:17)
[2017-05-10] MEDS: AZITHROMYCIN 500MG/NS 250 ML 250 ML IV SCH (10:32)
[2017-05-10] MEDS: ACETAMINOPHEN 325 MG TAB PO PRN (14:32)
[2017-05-10] MEDS: ENOXAPARIN SOD INJ 40 MG/0.4 ML SYR SC SCH (16:23)
[2017-05-10] MEDS: ATORVASTATIN 40 MG TAB PO SCH (20:22)
[2017-05-11] VITALS: BP 98/59
[2017-05-11] MEDS: ACETAMINOPHEN 325 MG TAB PO PRN ×2 (00:04→09:07)
[2017-05-11] MEDS: ALBUTEROL SULF 0.083% NEB SOLN 3 ML NEB NEB SCH ×2 (01:00→07:00)
[2017-05-11] MEDS: IPRATROPIUM BROMIDE 0.02% 2.5 ML NEB NEB SCH ×2 (01:00→07:00)
[2017-05-11 04:00] VITALS: BP 94/54
[2017-05-11 06:41] LABS: BASOPHILS % 0.6 % (0.0-1.0); EOSINOPHILS # (AUTO) 0.2 (0.0-0.4); EOSINOPHILS % 2.8 % (0.0-6.0); HEMATOCRIT 35.5 % (34.2-44.1); LYMPHOCYTES # (AUTO) 2.7 (1.0-3.2); LYMPHOCYTES % 50.8 % (18.0-39.1); MEAN CORPUSCULAR HEMOGLOBIN 27.1 pg (28-32); MEAN CORPUSCULAR VOLUME 87.4 fL (81-99); MONOCYTES # (AUTO) 0.6 (0.2-0.8); MONOCYTES % 10.8 % (4.4-11.3); NEUTROPHILS # (AUTO) 1.8 (2.1-6.9); NEUTROPHILS % 34.2 % (38.7-80.0); PLATELET COUNT 241 x10e3/uL (140-360); RED BLOOD COUNT 4.06 x10e6/uL (3.6-5.1); RED CELL DISTRIBUTION WIDTH 15.4 % (11.7-14.4)
[2017-05-11] MEDS: BUDESONIDE/FORMOTEROL 160/4.5MCG INHALER INH SCH (07:00)
[2017-05-11 07:01] LABS: ANION GAP 10.3 mmol/L (8-16); BLOOD UREA NITROGEN 10 mg/dL (7-26); BUN/CREATININE RATIO 14 (6-25); CALCIUM 9.1 mg/dL (8.4-10.2); CARBON DIOXIDE 27 mmol/L (22-29); CHLORIDE 108 mmol/L (98-107); CREATININE, SERUM 0.74 mg/dL (0.57-1.11); EST GLOMERULAR FILTRATION RATE > 60 ML/MIN (60-); GLUCOSE 96 mg/dL (74-118); POTASSIUM 4.3 mmol/L (3.5-5.1); SODIUM 141 mmol/L (136-145)
[2017-05-11 07:25] VITALS: BP 85/70
[2017-05-11 07:38] VITALS: BP 85/70
[2017-05-11] MEDS: ASPIRIN 81 MG ENTERIC COATED PO SCH (08:29)
[2017-05-11] MEDS: BUPROPION HCL SR 150 MG TAB PO SCH (08:29)
[2017-05-11] MEDS: CEFTRIAXONE SOD 1 GM VIAL IV SCH (08:29)
[2017-05-11] MEDS: TRAZODONE HCL 50 MG TAB PO SCH (08:29)
[2017-05-11] MEDS: PANTOPRAZOLE SOD 40 MG TABEC PO SCH (08:29)
[2017-05-11] MEDS: AZITHROMYCIN 500MG/NS 250 ML 250 ML IV SCH (09:07)
--- NOTE | 2017-05-11 09:39 | Diagnostic Imaging Report ---
PROCEDURE: X-RAY CHEST, TWO VIEWS COMPARISON: [facility], DX, CHEST 2 VIEWS, 05/09/2017, 7:25. INDICATIONS: PNEUMONIA FINDINGS: LUNGS: Improving left lower lobe pneumonia. PLEURA: No effusions or pneumothorax. HEART \T\ MEDIASTINUM: The heart is within normal size-limits. BONES \T\ SOFT TISSUES: No acute findings. There is a gastric lap band present in appropriate position below the diaphragm. CONCLUSION: Improving left lower lobe pneumonia. Delvin Schilling D.O. Dictated by: Delvin Schilling D.O. on 05/11/2017 at 9:39 Electronically approved by: Delvin Schilling D.O. on 05/11/2017 at 9:39
[2017-05-11 11:27] VITALS: BP 101/71
[2017-06-12] MEDS ORDERED: ALLERGY RELIEF10 M1 PO (11:51)
[2017-06-12] MEDS ORDERED: SLOW RELEASE IRON PO (11:51)
--- NOTE | 2017-07-07 11:11 | Discharge Summary ---
CHIEF COMPLAINTS 1. Hypoxia. 2. Pneumonia. FINAL DIAGNOSES 1. Pneumonia, improved. 2. Chronic obstructive pulmonary disease. DISPOSITION: Home. A 62-year-old female, known history of major depressive disorder, COPD, GERD, brought to the ER with a 1-day history of progressive shortness of breath, congestion, and per Dr. Ponce, associated with fever and chills. No other complaints. Was evaluated in the emergency room. She was demonstrating inspiratory crackles on her chest with auscultation. With further monitoring of her data in the ER, she was being admitted to facility for care regarding complaints of chest congestion, fever, cough, pneumonia, hyperlipidemia, GERD, COPD. Will begin IV antibiotics. Begin nebulizer treatments. Home medications will continue. Patient was admitted to the med/surg floor, was on a regular diet. Was receiving respiratory treatments. Had been started on azithromycin 250 IV q. daily, ceftriaxone 1 g IV q.24. Given acetaminophen for temp management. Daily medications were continuing as well. Laboratory studies were showing stable electrolytes. Kidney functions stable. Glucose 103. CBC was showing hemoglobin of 13 with a white cell count 16,800. She was beginning to feel better. She was responding to treatments. Her white blood cell count improved to 6500. His hemoglobin dropped to 9.8. Potassium dropped to 3.2. Medications were continuing. She was started on potassium replenishment, responded to 3.6, then responded up to 3.9, up to 4.3 at the time of discharge. Chest x-rays were still revealing some evidence of right lower lobe pneumonia. Final chest x-ray was unremarkable, good sign of clearance. She was cleared for discharge and she was able to be released home on May 11, 2017, in condition. EKG shows normal sinus rhythm, low-voltage QRS. With discharge, she will continue on a 2-g sodium diet. No equipment or supplies were necessary, drains or Rice needed. Activity level was as directed by me. She will be following up with her PCP within 7 to 10 days. She was given prescription for 1. Ceftin 250 one tablet p.o. b.i.d. 2. Z-Juice take as directed. 3. Daily medications continue on albuterol sulfate nebulizer treatments. Inhalation of treatment as needed for shortness of breath. 4. Aspirin 81 mg daily. 5. Atorvastatin 20 mg at bedtime. 6. Biotin 1 mg tablet daily. 7. Symbicort 160 per 4.5 inhalation once daily as needed for shortness of breath. 8. Wellbutrin 150 mg daily. 9. Protonix 40 mg daily. 10. Trazodone 50 mg nightly. She will be contacting her PCP if she has any further difficulties or complaints, concerns. Dictated By: RONNA Leggett Job#: [id number] CQ
== END 2017-05-11 14:47 | disposition home or self-care (01) | DRG 871 ==
LOC: ER 07:11 → ERHOLD 08:22 → ER 13:00 → MED/SURG3 13:01
DX: A41.9 Sepsis, unspecified organism (principal); J18.9 Pneumonia, unspecified organism; J44.0 Chronic obstructive pulmonary disease with (acute) lower respiratory infection; F32.9 Major depressive disorder, single episode, unspecified; K21.9 Gastro-esophageal reflux disease without esophagitis; E87.6 Hypokalemia; E03.9 Hypothyroidism, unspecified; R09.02 Hypoxemia
CPT/HCPCS: 36415; 71045; 71046; 80048; 80053; 82550; 82553; 84484; 85025; 87040; 87400; 93005; 94640; 99284; J0456; J0696; J1650; J2270; J2405; J7030

== ENCOUNTER → 2017-06-14 | Day surgery (SDC) | payer BC ==
[~2017-06-14] MED LIST changes: +ALBUTEROL0.63 MG/3 INH; +ALLERGY RELIEF10 M1 PO; +ASPIRIN EC81 MG PO; +ATORVASTATIN CA20 MG PO; +BIOTIN1 MG PO; +FENTANYL CITRATE/PF 100MCG/2 ML INJ ONE; +MIDAZOLAM HCL 2 MG/2 ML VIAL ONE; +PROPOFOL IV EMULSION 10 MG/ML 50 ML VIAL ONE; +SLOW RELEASE IRON PO; +SYMBICORT 16010.2 GM; +TRAZODONE HCL50 MG PO
--- OUTSIDE RECORDS SUMMARY | 2017-06-14 08:29 | XMS REPORT | Continuity of Care Document ---
Author Author [facility] Organization [facility] Address [address] [place] [address] Phone Unavailable Care Team Providers Care Awning Craftsman Name Role Phone CINDY BRICENO DO PCP Insurance Providers Guarantor Ana Laura Lopez Address [address] [place] [address] Payer [facility] Policy Number [id number] Subscriber's Name Ana Laura Lopez Relationship 18 Self / Same As Patient Group Number [id number] Group Name [employer]. Effective Date 14 Advance Directives Directive Response Recorded Date/Time Does the patient have an advance directive? No 05/04/17 1:45pm If yes, is advance directive on file with [facility]? No 05/04/17 1:45pm If not on file with [facility] will patient provide a copy? Yes 05/04/17 1:45pm Do you have a Directive to Physician? No 05/04/17 7:59am Do you have a Medical Power of Obiee Lead Developer? No 05/04/17 7:59am Do you have an [...] Ml Inhalation Aspirin (Aspirin Ec) 81 Mg Tablet. 81 Mg Oral Daily 30 Tab Atorvastatin [...] Onset Date Status Hx Psychiatric Problems No 05/04/2017 1:45pm Not Applicable Not Applicable Hx Eating Disorder No 05/04/2017 1:45pm Not Applicable Not Applicable Hx Substance Use Disorder No 05/04/2017 1:45pm Not Applicable Not Applicable Hx Depression No 05/04/2017 1:45pm Not Applicable Not Applicable Hx Alcohol Use No 05/04/2017 1:45pm Not Applicable Not Applicable Hx Substance Use Treatment No 05/04/2017 1:45pm Not Applicable Not Applicable Hx Physical Abuse No 05/04/2017 1:45pm Not Applicable Not Applicable Smoking Status Start Date Stop Date Never Smoker Hospital Discharge Instructions No hospital discharge instruction information available. Plan of Care Discharge Date 05/11/17 2:47pm Disposition HOME, SELF-CARE Instructions/Education Provided Pneumonia - Bacterial Prescriptions See Medication Section Additional Instructions/Education DIET:2 GM SODIUM; CONTINUE WITH ACTIVITIES DIRECTED. Functional Status Query Response Date Recorded Assistive Devices None May 04, 2017 1:45pm Ambulation Ability Standby Assistance May 04, 2017 1:45pm Toileting Ability Independent May 11, 2017 8:53am Allergies, Adverse Reactions, Alerts Allergen Type Severity Reaction Status Last Updated TAPE Allergy Mild skin irritation Active 08/02/16 Immunizations No immunization information available. Vital Signs Acute Vital Signs Vital Response Date/Time Temperature (Fahrenheit) 97.6 degrees F (97.6 - 99.5) 05/11/2017 11:27am Pulse Pulse Rate (adult) 78 bpm (60 - 90) 05/11/2017 11:27am Respiratory Rate 18 bpm (12 - 24) 05/11/2017 11:27am Blood Pressure 101/71 mm Hg 05/11/2017 11:27am Height 4 ft 11.5 in 05/04/2017 7:11am Weight 169.19 lb 05/05/2017 12:00am Body Mass Index 33.6 kg/m^2 05/05/2017 12:00am Results Laboratory Results Test Name Result Units [...] CLEAR 02/23/2017 10:00am 02/23/2017 10:41am Urine Specific [place] 1.015 1.010-1.025 02/23/2017 10:00am 2016 10:41am Urine [...] 10:00am 02/23/2017 10: 42am White Blood Count 5.30 x10e3/uL 4.8-10.8 05/11/2017 6:24am 05/11/2017 6 :46am Red Blood Count 4.06 x10e6/uL 3.6-5.1 05/11/2017 6:24am 05/11/2017 6: 46am Hemoglobin 11.0 g/dL L 12.0-16.0 05/11/2017 6:24am 05/11/2017 6:46am Hematocrit 35.5 % 34.2-44.1 05/11/2017 6:24am 05/11/2017 6:46am Mean Corpuscular Volume 87.4 fL 81-99 05/11/2017 6:24am 05/11/2017 6: 46am Mean Corpuscular Hemoglobin 27.1 pg L 28-32 05/11/2017 6:24am 2017 6:46am Mean Corpuscular Hemoglobin Concent 31.0 g/dL 31-35 05/11/2017 6:05/11/2017 6:46am Red Cell Distribution Width 15.4 % H 11.7-14.4 05/11/2017 6:2017 6:46am Platelet Count 241 x10e3/uL 140-360 05/11/2017 6:05/11/2017 6: 46am Neutrophils (%) (Auto) 34.2 % L 38.7-80.0 05/11/2017 6:05/11/2017 6 :46am Lymphocytes (%) (Auto) 50.8 % H 18.0-39.1 05/11/2017 6:05/11/2017 6 :46am Monocytes (%) (Auto) 10.8 % 4.4-11.3 05/11/2017 6:05/11/2017 6: 46am Eosinophils (%) (Auto) 2.8 % 0.0-6.0 05/11/2017 6:05/11/2017 6: 46am Basophils (%) (Auto) 0.6 % 0.0-1.0 05/11/2017 6:05/11/2017 6:46am IM GRANULOCYTES % 0.8 % 0.0-1.0 05/11/2017 6:05/11/2017 6:46am Neutrophils # (Auto) 1.8 L 2.1-6.9 05/11/2017 6:05/11/2017 6: 46am Lymphocytes # (Auto) 2.7 1.0-3.2 05/11/2017 6:05/11/2017 6:46am Monocytes # (Auto) 0.6 0.2-0.8 05/11/2017 6:05/11/2017 6:46am Eosinophils # (Auto) 0.2 0.0-0.4 05/11/2017 6:05/11/2017 6:46am Basophils # (Auto) 0.0 0.0-0.1 05/11/2017 6:05/11/2017 6:46am Absolute Immature Granulocyte (auto 0.04 x10e3/uL 0-0.1 05/11/2017 6: 05/11/2017 6:46am Sodium Level 141 mmol/L 136-145 05/11/2017 6:05/11/2017 7:02am Potassium Level 4.3 mmol/L 3.5-5.1 05/11/2017 6:05/11/2017 7:02am Chloride Level 108 mmol/L H 98-107 05/11/2017 6:05/11/2017 7:02am Influenza Virus Types A,B Antigen NEGATIVE NEGATIVE 05/04/2017 7:05/04/2017 8:08am Carbon Dioxide Level 27 mmol/L -05/11/2017 6:05/11/2017 7: 02am Anion Gap 10.3 mmol/L 8-05/11/2017 6:05/11/2017 7:02am Blood Urea Nitrogen 10 mg/dL 10-1905/11/2017 6:05/11/2017 7:02am Creatinine 0.74 mg/dL 0.57-1.11 05/11/2017 6:05/11/2017 7:02am BUN/Creatinine Ratio 14 09-1805/11/2017 6:05/11/2017 7:02am Estimat Glomerular Filtration Rate > 60 ML/MIN 05/11/2017 6: 7:02am Ranges were taken from the National Kidney Disease Education Program and the National Kidney Foundation literature. Reference ranges: 60 or greater: Normal 16-59 (for 3 consecutive months): Chronic kidney disease 15 or less: Kidney failure Glucose Level 96 mg/dL 74-118 05/11/2017 6:05/11/2017 7:02am Calcium Level 9.1 mg/dL 8.4-10.2 05/11/2017 6:05/11/2017 7:02am Total Bilirubin 0.5 mg/dL 0.2-1.2 05/04/2017 7:05/04/2017 8:08am Aspartate Amino Transf (AST/SGOT) 17 IU/L 5-34 05/04/2017 7:2017 8:08am Alanine Aminotransferase (ALT/SGPT) 17 IU/L 0-55 05/04/2017 7:10/2017 8:08am Total Protein 7.1 g/dL 6.5-8.1 05/04/2017 7:25am 05/04/2017 8:08am Albumin 3.5 g/dL 3.5-5.0 05/04/2017 7:25am 05/04/2017 8:08am Globulin 3.6 g/dL H 2.3-3.5 05/04/2017 7:25am 05/04/2017 8:08am Albumin/Globulin Ratio 1.0 0.8-2.0 05/04/2017 7:25am 05/04/2017 8: 08am Alkaline Phosphatase 78 IU/L 40-150 05/04/2017 7:25am 05/04/2017 8: 08am Creatine Kinase 93 IU/L 29-168 05/04/2017 7:25am 05/04/2017 8:08am Creatine Kinase MB 2.90 ng/mL 0.00-5.00 05/04/2017 7:25am 05/04/2017 8: 25am Troponin I 0.003 ng/mL 0-0.300 05/04/2017 7:25am 05/04/2017 8:25am Microbiology Results Procedure Source Organism/Result Collection Date/Time Result Date/Time Result Status Blood Culture Blood NO GROWTH AFTER 5 DAYS, FINAL REPORT 05/04/2017 7:25am 05/09/2017 7:43am Final Procedures Procedure Status Date Provider(s) X-ray of chest, two views Active 08/02/16 KARELY ROWELL NP Computed tomography of brain without then with contrast Active 08/04/16 CAYETANO TREVINO MD X-ray of chest, single view Active 05/04/17 YESSI CHOE MD X-ray of chest, two views Active 05/06/17 CAYETANO TREVINO MD X-ray of chest, two views Active 05/09/17 CAYETANO TREVINO MD X-ray of chest, two views Active 05/11/17 CAYETANO TREVINO MD Encounters Encounter Location Arrival/Admit Date Discharge/Depart Date Attending Provider Discharged Inpatient [facility] 05/04/17 1:01pm 05/11/17 2:47pm CAYETANO TREVINO MD Departed Emergency Room [facility] 02/23/17 9:34am 1:13pm NATHALIA RICCI MD Discharged Inpatient [facility] 08/02/16 7:43pm 08/05/16 12:14pm CAYETANO TREVINO MD
--- NOTE | 2017-06-14 12:33 | Operative Report ---
DATE OF PROCEDURE: June 14, 2017 REFERRING PHYSICIAN: Dr. Angelia Briceno PROCEDURE PERFORMED: Esophagogastroduodenoscopy with biopsies and dilatation. INDICATIONS FOR PROCEDURE: Dysphagia to solids, nausea and vomiting. Patient is status post Lap-Band. MEDICATION: Patient was done under MAC. Please see anesthesiologist's note. PROCEDURE: With the patient in the left lateral decubitus position, the flexible fiberoptic Olympus gastroscope was introduced into the esophagus under direct visualization without any difficulty. There was some patchy erythema noted in the distal esophagus. Some retained liquid debris was noted in the distal esophagus, and that was suctioned. The GE junction was noted at approximately 35 cm, and the scope was then advanced beyond the lower esophageal sphincter, and the Lap-Band appeared to be 3 cm distal. It was traversed with some gentle persistent pressure with the scope, which was advanced into the stomach. Mucosa overlying the antrum and the body revealed some patchy erythema and mild to moderate edema, and biopsies were obtained and sent to stain for H. pylori. Pylorus appeared to be of normal contour and shape. It was intubated with ease, and the scope was advanced all the way to the 2nd portion of the duodenum. The scope was then withdrawn slowly. Mucosa overlying the proximal 2nd portion appeared to be within normal limits. The mucosa overlying the duodenal bulb was excessively nodular. Biopsies were obtained. The scope was then withdrawn back into the stomach and retroflexed, and the Lap-Band also was noted to be in good position. The scope was then straightened out, and the Lap-Band was dilated to a size 17 Savary over a wire. The scope was subsequently withdrawn. Patient tolerated the procedure well. IMPRESSION 1. Distal esophagitis, mild. 2. Lap-Band tight 3 cm distal to the lower esophageal sphincter dilated to size 17 mm Savary over a wire. 3. Gastritis, biopsied. Biopsies sent to stain for H. pylori. 4. Duodenal bulb, nodular, biopsied. PLAN: Follow up histology. Increase Protonix to 40 mg 1 p.o. a.c. b.i.d. Job#: [id number] cc:ANGELIA BRICENO, DO DR. LEVY
== END | disposition home or self-care (01) ==
LOC: OR 08:26
PROVIDERS: ATTEND Internal Medicine Gastroenterology
DX: K29.50 Unspecified chronic gastritis without bleeding (principal); K29.80 Duodenitis without bleeding; Z98.84 Bariatric surgery status; K20.9 Esophagitis, unspecified; K22.8 Other specified diseases of esophagus; K59.00 Constipation, unspecified; F41.9 Anxiety disorder, unspecified; Z01.810 Encounter for preprocedural cardiovascular examination; Z79.82 Long term (current) use of aspirin; Z68.33 Body mass index [BMI] 33.0-33.9, adult; Z86.73 Personal history of transient ischemic attack (TIA), and cerebral infarction without residual deficits; Z87.01 Personal history of pneumonia (recurrent)
CPT/HCPCS: 43239; 43248; 93005; J2250; 43450

== ENCOUNTER → 2017-06-21 | Outpatient (CLI) | payer BC ==
[~2017-06-21] MED LIST changes: -FENTANYL CITRATE/PF 100MCG/2 ML INJ ONE; -MIDAZOLAM HCL 2 MG/2 ML VIAL ONE; -PROPOFOL IV EMULSION 10 MG/ML 50 ML VIAL ONE
--- NOTE | 2017-06-21 15:53 | Diagnostic Imaging Report ---
PROCEDURE:CT CHEST WITHOUT CONTRAST COMPARISON:[facility], CT, CT CHEST W, 12/28/2014, 15:48. [facility], DX, CHEST 2 VIEWS, 05/11/2017, 8:15. INDICATIONS:PNEUMONIA TECHNIQUE:CT images were created without the administration of contrast material. DLP: 450.62 mGy-CM FINDINGS: LUNGS:Numerous tiny groundglass nodules are present throughout the lungs in an apical to basilar gradient. There are no confluent infiltrates. There is diffuse mild bronchial wall thickening. The airways are patent. VASCULATURE:Aorta is normal in diameter. Main pulmonary artery measures 2.7 cm in diameter. MEDIASTINUM:The entire esophagus is dilated with fluid to a diameter of 3 cm. This esophageal dilatation terminates at a laparoscopic gastric band. This was present in 2014 where the esophagus was also dilated with fluid. Pericardial effusion measures 8 mm. LYMPH NODES: No enlarged axillary, supraclavicular lymph nodes. Prevascular lymph nodes measure up to 16 mm in longest dimension and has improved in size compared to previous exam. No evidence of hilar lymphadenopathy. No subcarinal lymphadenopathy.. CARDIAC:The heart is top normal in size. PLEURA:No pleural effusions or pleural based mass. CHEST WALL:Unremarkable. LIMITED ABDOMEN:Laparoscopic gastric band is in appropriate orientation. No mass in the visualized portion of the upper abdomen. BONES:Minimal endplate degenerative changes. No focal osseous lesions. Fusion hardware in the upper lumbar spine is visible on graphics specialist image and is intact. There are clips in the right upper quadrant suggestive of cholecystectomy. OTHER:Normal. CONCLUSION: 1. Diffusely dilated esophagus secondary to laparoscopic gastric band. The band should be deflated and the esophagus evaluated with upper GI. If esophageal dilatation persists, band slippage should be considered. 2. Multiple tiny inflammatory nodules throughout the lungs and mild bronchial wall thickening suggestive repeated bouts of micro-aspiration. No confluent infiltrates. Recommend followup CT in 3 months after gastric band inflation to assess interval change/resolution. 3. Mildly prominent mediastinal lymph nodes, improved in size compared to 2015. These are likely reactive to an infectious/inflammatory process. Findings discussed with Dr. Glen Gold at the time the study was performed. Dictated by: Nick Alejandro M.D. on 06/21/2017 at 15:53 Electronically approved by: Nick Alejandro M.D. on 06/21/2017 at 15:53
== END ==
LOC: CT 14:29
PROVIDERS: ATTEND Internal Medicine Pulmonary Disease
DX: J18.9 Pneumonia, unspecified organism (principal)
CPT/HCPCS: 71250

== ENCOUNTER → 2018-04-05 | Day surgery (SDC) | payer BC ==
[~2018-04-05] MED LIST changes: +ACETAMINOPHEN 1000 MG/100 ML IV ONE; +BUPIVACAINE 0.25% 30ML SDV INJ ONE; +CEFAZOLIN SOD 1 GM/D5W 50ML 50 ML IV ONE; +CULTURELLE1 EACH PO; +DEXAMETHASONE SOD PHOS INJ 4 MG/ML VIAL ONE; +FENTANYL CITRATE/PF 100MCG/2 ML INJ ONE; +FERROCITE PLUS1 EACH PO; +KETOROLAC TROMETHAMINE 30 MG/ML VIAL ONE; +LIDOCAINE HCL 2% LOCAL INJ 5 ML SDV VIAL INJ ONE; +LINZESS PO; +METOCLOPRAMIDE HCL 10 MG/2ML VIAL ONE; +MIDAZOLAM HCL 2 MG/2 ML VIAL ONE; +MUPIROCIN 2% OINT 22 GM TUBE ONE; +ONDANSETRON HCL INJ 2 MG/ML VIAL ONE; +PROPOFOL IV EMULSION 10 MG/ML 20 ML VIAL ONE; +SEVOFLURANE INHAL SOLN 250 ML PEN BTL ONE; +ULTRAM 50MG50 MG PO; +[UNRECOGNIZED DRUG - OTHER] PO
[2018-04-05 08:45] VITALS: BP 102/55
--- NOTE | 2018-04-05 13:46 | Operative Report ---
DATE OF PROCEDURE: April 05, 2018 PREOPERATIVE DIAGNOSES 1. Right carpal tunnel syndrome. 2. Stenosing tenosynovitis of right thumb. POSTOPERATIVE DIAGNOSES 1. Right carpal tunnel syndrome. 2. Flexor tenosynovitis, right wrist. 3. Stenosing tenosynovitis of right thumb. PROCEDURES 1. Right open carpal tunnel release. 2. Flexor tenosynovectomy, right wrist. 3. Tenovaginotomy of right thumb. ANESTHESIA: General. HISTORY: The patient is a 63-year-old female with EMG-proven right carpal tunnel syndrome and stenosing tenosynovitis of the right thumb. The risks, benefits and alternatives of treatment were discussed with the patient. The patient is prepared to undergo the procedure as outlined. PROCEDURE: The patient was brought to the operating theater. After the induction of adequate general inhalation anesthesia, the patient was prepped and draped in the supine position. A time out was performed by the entire operating room team. A 2.5-cm incision was marked out in the intrathenar space. The right upper extremity was exsanguinated and a tourniquet was inflated to a pressure of 250 mmHg. The incision was made through the skin and subcutaneous tissues and all venous tributaries were controlled with bipolar cautery. The incision was deepened through the palmar fascia until the transverse carpal ligament was identified. The ligament was sharply sectioned, taking care to protect and preserve the median nerve underlying it. After the complete width of the ligament had been transected, the distal volar forearm fascia was divided under direct view. Proliferative flexor tenosynovium was noticed to encompass the median nerve and this was radically excised. After performing this maneuver, the nerve was noted to lie adequately decompressed. The wound was copiously irrigated with bacteriostatic saline, closed with 5-0 nylon in an interrupted horizontal mattress fashion. A Marcaine field block was performed at the operative site. A sterile bulking conforming bandage was applied to the hand and the wrist. A fiberglass splint was fashioned to maintain the wrist in a modest amount of extension. This was held in place with a loosely wrapped Angel wrap. An oblique incision was marked out over the A1 denise of the right thumb. The incision was made through the skin and subcutaneous tissues. All venous tributaries were controlled with bipolar cautery. The incision was deepened through the palmar tissues. The neurovascular bundles on the radial and ulnar sides of the flexor tendon sheath were identified and retracted away from the flexor tendon sheath and preserved. The A1 denise of the affected finger was identified and incised longitudinally, taking care to protect and preserve the flexor tendons within the sheath. After the complete length of the denise had been transected, the tendons were placed in a range of motion. There was noted to be good motion without any locking. The wound was then copiously irrigated with bacteriostatic saline and closed with 5-0 nylon in an interrupted horizontal mattress fashion. A Marcaine field block was performed at the operative site. The tourniquet was deflated. All the fingers pinked up nicely. A sterile bulky conforming bandage was applied to the hand, and the patient was returned to the recovery room in satisfactory condition and was discharged with a postoperative instruction sheet as well as a followup appointment. Job#: [id number]
== END | disposition home or self-care (01) ==
LOC: OR 05:08
PROVIDERS: ATTEND Plastic Surgery
DX: M65.841 Other synovitis and tenosynovitis, right hand (principal); G56.01 Carpal tunnel syndrome, right upper limb; M65.311 Trigger thumb, right thumb; F41.9 Anxiety disorder, unspecified; F17.210 Nicotine dependence, cigarettes, uncomplicated; Z91.048 Other nonmedicinal substance allergy status; Z01.810 Encounter for preprocedural cardiovascular examination; Z79.82 Long term (current) use of aspirin; Z86.73 Personal history of transient ischemic attack (TIA), and cerebral infarction without residual deficits; Z87.01 Personal history of pneumonia (recurrent)
CPT/HCPCS: 25115; 26055; 93005; J0131; J0690; J1100; J1885; J2001; J2250; J2405; J2704; J2765